=== PATIENT | male | born 1970 | race Caucasian/White ===

== ENCOUNTER → 2017-03-08 | Outpatient (CLI) | payer OTHER ==
[~2017-03-08] MED LIST: ANTIVERT25 MG PO; HYDROCODON-ACE1 EAC7 PO; LASIX 80 MG TAB80 MG PO; LISINOPRIL-HCT1 EAC2 PO; METFORMIN HCL500 MG PO; NORVASC10 MG PO; PREDNISONE 10 M10 M1 PO; UNICOMPLEX M TA1 TA1 PO
--- NOTE | 2017-03-14 11:21 | SLEEP ---
[address] [address] SLEEP STUDY REPORT Name: DARRIAN HARRY Room: [facility] Concepcion#: [id number] Admission: 03/08/17 Attend Phys: Hue Marques DO Discharge: Date of : 66 Report #: [id number] THIS REPORT FOR: //name// CC: Hue Ann This study has been reviewed in its entirety by a board certified sleep specialist date of service 03/08/2017 TYPE OF STUDY: Home sleep apnea test. REFERRING PHYSICIAN: Hue Marques DO INDICATION: This was a home sleep apnea test with a total recording time 341.8 minutes. During the study, the patient had 29 central apneas, 12 obstructive apnea, 2 mixed apneas and 303 hypopneas with overall apnea-hypopnea index of 68.5. These episodes were noted to be frequent in both supine and lateral positions. OXIMETRY DATA: The average oxygen saturation was 87%. The lowest O2 saturation recorded was 57%. The patient spent 159.9 minutes with O2 saturation less than 90%. Snoring was recorded during the study. IMPRESSION: The above home sleep apnea test demonstrates severe obstructive sleep apnea with apnea-hypopnea index of 68.5 and oxygen desaturation to a armando of 57%. Also, the patient had severe hypoxemia during the study with average O2 saturation 87% and he spent 159.9 minutes with O2 saturation less than 90%. RECOMMENDATIONS: 1. Recommend sending the patient to a sleep lab for PAP titration study to determine the PAP pressure that control the patient's obstructive sleep apnea and also to evaluate for the need of oxygen with a PAP therapy after controlling the obstructive respiratory events. 2. The patient with severe hypoxemic, recommend evaluation for intrinsic lung disease. <ELECTRONICALLY SIGNED> By: Deng Conway MD 03/14/17 1121 [id number] [id number] Conway MD /nt
== END ==
LOC: M.SLEEPLAB 09:00
DX: G47.33 Obstructive sleep apnea (adult) (pediatric) (principal); R09.02 Hypoxemia

== ENCOUNTER → 2017-03-29 | Outpatient (CLI) | payer OTHER ==
[2017-03-29 10:12] LABS: POTASSIUM 4.1 mmol/L (3.5-5.1)
== END ==
LOC: M.LAB 06:29
PROVIDERS: Anesthesiology
DX: Z01.812 Encounter for preprocedural laboratory examination (principal); E11.9 Type 2 diabetes mellitus without complications

== ENCOUNTER → 2017-04-02 | Outpatient (CLI) | payer OTHER ==
--- NOTE | 2017-05-02 10:53 | SLEEP ---
[address] [address] SLEEP STUDY REPORT Name: DARRIAN HARRY Room: [facility] Concepcion#: [id number] Admission: 04/02/17 Attend Phys: Hue Marques DO Discharge: Date of : 66 Report #: [id number] THIS REPORT FOR: //name// CC: Hue Ann This study has been reviewed in its entirety by a board certified sleep specialist DATE OF SERVICE: 04/02/2017 INDICATION FOR SLEEP STUDY: Excessive daytime sleepiness. INTERPRETATION: Total duration of the study is 360 minutes. During this time duration, he was asleep for 347 minutes with an overall sleep efficiency of 67%. The patient's lights out time was 8:53 p.m. First sleep occurred at 9:04 p.m. N1 sleep duration was 30%, N2 duration was 31%, N3 duration was 3% and REM duration was 37%. This is a split night sleep study. During initial part of the sleep study, the patient was not on positive airway pressure therapy for 114 minutes. During this time duration, 59 minutes of sleep time was recorded. This included the entire duration being a non-REM sleep. When not on CPAP therapy, there are multiple sleep related respiratory events recorded. These included 99 obstructive apneas in addition to 10 hypopneas with an overall apnea-hypopnea index of 110.8. Body position data indicates that the entire sleep time is in the supine position during the diagnostic portion of the sleep study and mean heart rate is 78. Periodic limb movement index at that point was 55 with a periodic limb movement index with arousals being 3.1. Arousal index was significantly elevated at 98.6. The patient also had multiple desaturation during the diagnostic portion of the sleep study and overall spent 23.4 minutes below an O2 saturation of 88%. The patient was subsequently placed on positive airway pressure therapy and was observed on positive airway pressure therapy for 246 minutes. This included 182 minutes of sleep time. This in turn included 51 minutes in REM sleep. Mean heart rate was now 77 with a periodic limb movement index improving to 27.7 with a periodic limb movement index with arousals being 0.3. Arousal index was improved to 12.7. Review of the CPAP titration indicates the patient was titrated beginning with a CPAP pressure of 8 cm of water, gradually increasing it to 16 cm of water with the administration of CPAP of 16 cm of water. There is adequate control of the patient's sleep apnea and O2 saturation is also adequately maintained. There is REM supine sleep observed [place] [address] SLEEP STUDY REPORT Name: DARRIAN HARRY Room: [facility] Concepcion#: [id number] Admission: 04/02/17 Attend Phys: Hue Marques DO Discharge: Date of : 66 Report #: [id number] IMPRESSION: 1. Obstructive sleep apnea with nocturnal hypoxemia. See details above. 2. Adequate control of the administration of CPAP of 16 cm of water. RECOMMENDATIONS: Recommend a CPAP of 16 cm of water with heated humidity and mask per patient preference while asleep. During the sleep study, an F and P Sim[employer] FFM size large mask was used. Recommend weight loss. Recommend avoiding driving or other activities requiring vigilance if drowsy. This entire sleep study was reviewed by board certified sleep physician. <ELECTRONICALLY SIGNED> By: Brice King MD 05/02/17 1053 1423 [id number] King MD /nt
== END ==
LOC: M.SLEEPLAB 19:44
DX: G47.30 Sleep apnea, unspecified (principal); J96.21 Acute and chronic respiratory failure with hypoxia; I10 Essential (primary) hypertension; E10.9 Type 1 diabetes mellitus without complications; E78.5 Hyperlipidemia, unspecified; E66.01 Morbid (severe) obesity due to excess calories; M19.91 Primary osteoarthritis, unspecified site; Z90.49 Acquired absence of other specified parts of digestive tract

== ENCOUNTER → 2017-07-08 | Outpatient (CLI) | payer OTHER | LOC: M.CT 10:22 | DX: G93.89 Other specified disorders of brain (principal) ==

== ENCOUNTER 2017-09-30 08:11 | Emergency (ER) | payer OTHER ==
[~2017-09-30] VITALS: Ht 182.9 cm; Wt 190.5 kg
[~2017-09-30 08:11] MED LIST changes: -LASIX 80 MG TAB80 MG PO; -METFORMIN HCL500 MG PO; -NORVASC10 MG PO
[2017-09-30] MEDS ORDERED: LASIX 80 MG TAB80 MG PO (08:28)
[2017-09-30] MEDS ORDERED: METFORMIN HCL500 MG PO (08:28)
[2017-09-30] MEDS ORDERED: NORVASC10 MG PO (08:29)
[2017-09-30 08:56] LABS: HEMATOCRIT 45.7 % (42.0-52.0); MCH 28.7 pg (26.0-34.0); MCHC 32.7 g/dL (28.0-37.0); MCV 87.7 fL (80.0-100.0); MPV 9.1 fl. (7.2-11.1); RBC 5.21 mil/uL (4.50-6.00); RDW-CV 15.3 % (10.5-14.5); WBC 7.5 thou/uL (4.0-11.0)
[2017-09-30 09:12] LABS: CREATININE 0.9 mg/dL (0.6-1.3); POTASSIUM 3.5 mmol/L (3.5-5.1)
[2017-09-30 10:54] VITALS: BP 150/103
== END 2017-09-30 10:54 | disposition home or self-care (01) ==
LOC: M.ERS 08:11
PROVIDERS: Emergency Medicine Emergency Medical Services
DX: R51 Headache (principal); I10 Essential (primary) hypertension; M79.7 Fibromyalgia; Z90.49 Acquired absence of other specified parts of digestive tract

== ENCOUNTER → 2017-10-09 | Outpatient (CLI) | payer OTHER ==
[~2017-10-09] MED LIST changes: +LASIX 80 MG TAB80 MG PO; +METFORMIN HCL500 MG PO; +NORVASC10 MG PO
[2017-10-09 16:53] LABS: ABSOLUTE BASOPHILS 0.1 thou/uL (0.0-0.2); ABSOLUTE EOSINOPHILS 0.1 thou/uL (0.0-0.7); ABSOLUTE LYMPHOCYTES 1.9 thou/uL (0.8-5.3); ABSOLUTE MONOCYTES 0.9 thou/uL (0.0-1.2); ABSOLUTE NEUTROPHILS 5.6 thou/uL (1.6-8.1); BASOPHILS 0.6 %; EOSINOPHILS 0.9 %; HEMATOCRIT 45.4 % (42.0-52.0); LYMPHOCYTES 22.1 %; MCH 28.5 pg (26.0-34.0); MCV 86.4 fL (80.0-100.0); MONOCYTES 10.8 %; MPV 8.8 fl. (7.2-11.1); NUCLEATED RBCS 0 /100WBC; PLATELET COUNT* 168 thou/uL (150-400); POLYS 65.6 %; RBC 5.26 mil/uL (4.50-6.00); WBC 8.5 thou/uL (4.0-11.0)
[2017-10-09 17:10] LABS: CALCIUM 9.3 mg/dL (8.5-10.1); POTASSIUM 3.4 mmol/L (3.5-5.1)
[2017-10-09 17:15] LABS: TOTAL BILIRUBIN 0.3 mg/dL (<0.1-1.0); TOTAL PROTEIN 7.9 g/dL (6.4-8.2)
== END ==
LOC: M.ULTRA 16:00
PROVIDERS: Family Medicine
DX: M79.89 Other specified soft tissue disorders (principal); M79.662 Pain in left lower leg; I10 Essential (primary) hypertension

== ENCOUNTER → 2017-10-25 | Outpatient (CLI) | payer OTHER | LOC: M.NUC 10-17 10:57 | DX: M84.369 Stress fracture, unspecified tibia and fibula (principal); I10 Essential (primary) hypertension ==